=== PATIENT | male | born 1935 | race Caucasian/White ===

== ENCOUNTER 2020-10-17 12:37 | Inpatient (IN) | payer OTHER ==
[2020-10-17] MEDS ORDERED: LACTATED RINGERS SOLUTION 1000 ML INFUS.BAG IV ONE (13:17)
[2020-10-17] MEDS ORDERED: ACETAMINOPHEN 325 MG TABLET (FP) PO ONE (14:15)
[2020-10-17 14:25] LABS: BASO % 0.7 % (0-2.0); EOS % 0.1 % (0-4.5); HEMOGLOBIN 13.3 GM/dL (11.7-16.9); LYMPH % 12.5 % (8-40); MCH 32.2 pg (25.7-33.7); MEAN PLT VOLUME 9.6 fl (7.5-11.1); MONO % 13.1 % (3.8-10.2); NEUT % 73.6 % (42.8-82.8); PLATELET COUNT 82 K/MM3 (134-434); RBC 4.13 M/mm3 (4.00-5.60); RDW 14.7 % (11.9-15.9); WHITE BLOOD COUNT 4.3 K/mm3 (4.0-10.0)
[2020-10-17] MEDS ORDERED: ACETAMINOPHEN 325 MG TABLET (FP) ONE (14:39)
[2020-10-17 14:43] LABS: POTASSIUM 4.5 mmol/L (3.5-5.1)
[2020-10-17 14:46] LABS: BLOOD UREA NITROGEN 16.8 mg/dL (7-18)
[2020-10-17 14:49] LABS: BILIRUBIN,DIRECT 0.3 mg/dL (0.0-0.2); CREATININE 0.9 mg/dL (0.55-1.3)
[2020-10-17 14:51] LABS: BILIRUBIN,TOTAL 0.7 mg/dL (0.2-1); TOT PROT 6.3 g/dl (6.4-8.2)
[2020-10-17 14:54] LABS: INR 1.15 (0.83-1.09); PROTHROMBIN TIME (PATIENT) 13.8 SEC (9.7-13.0)
[2020-10-17 14:57] LABS: ACTIVATED PTT 32.9 SECONDS (25.2-36.5)
[2020-10-17] MEDS ORDERED: ACETAMINOPHEN 325 MG TABLET (FP) PO PRN (15:33)
[2020-10-17] MEDS ORDERED: AZITHROMYCIN 200 MG/5 ML BOTTLE ONE (16:21)
[2020-10-17] MEDS ORDERED: CEFTRIAXONE 1 GM/50 ML BAG ONE ×3 (16:21→17:34)
[2020-10-17] MEDS ORDERED: AZITHROMYCIN IVPB 500 MG/250 ML BAG IVPB ONE ×2 (16:22→17:36)
[2020-10-17] MEDS: CEFTRIAXONE 1 GM in DEXTROSE 5%-WATER - 50 ML IVPB SCH (17:35)
[2020-10-17] MEDS: AZITHROMYCIN IVPB 500 MG/250 ML BAG IVPB SCH (17:35)
[2020-10-17] MEDS ORDERED: DEXAMETHASONE SOD PHOSPHATE 10 MG/1 ML VIAL IVPUSH ONE (18:17)
[2020-10-17] MEDS ORDERED: DEXAMETHASONE SOD PHOSPHATE 10 MG/1 ML VIAL ONE (19:00)
[2020-10-17] MEDS: ATORVASTATIN CA 20 MG TABLET (FP) PO SCH (22:08)
[2020-10-18 01:42] VITALS: BMI 29.0
[2020-10-18 09:02] LABS: BASO % 0.2 % (0-2.0); HEMATOCRIT 39.2 % (35.4-49); HEMOGLOBIN 14.1 GM/dL (11.7-16.9); LYMPH % 13.2 % (8-40); MCH 32.3 pg (25.7-33.7); MCHC 35.9 g/dl (32.0-35.9); MEAN CELL VOLUME 90.2 fl (80-96); MEAN PLT VOLUME 9.3 fl (7.5-11.1); MONO % 8.5 % (3.8-10.2); NEUT % 78.1 % (42.8-82.8); RBC 4.35 M/mm3 (4.00-5.60); RDW 14.5 % (11.9-15.9)
[2020-10-18 09:25] LABS: POTASSIUM 4.1 mmol/L (3.5-5.1)
[2020-10-18 09:36] LABS: BLOOD UREA NITROGEN 16.7 mg/dL (7-18)
[2020-10-18 09:37] LABS: BILIRUBIN,TOTAL 0.5 mg/dL (0.2-1); TOT PROT 6.4 g/dl (6.4-8.2)
[2020-10-18 09:38] LABS: MAGNESIUM 2.5 mg/dL (1.8-2.4)
[2020-10-18 09:39] LABS: CREATININE 0.7 mg/dL (0.55-1.3); PHOSPHOROUS 3.8 mg/dL (2.5-4.9)
[2020-10-18] MEDS ORDERED: ASPIRIN COATED 81 MG TABLET.EC PO SCH (10:00)
[2020-10-18] MEDS ORDERED: DEXAMETHASONE SOD PHOSPHATE 10 MG/1 ML VIAL IVPUSH SCH (10:00)
[2020-10-18 10:38] LABS: PLATELET COUNT 87 K/MM3 (134-434)
[2020-10-18] MEDS: CEFTRIAXONE 1 GM in DEXTROSE 5%-WATER - 50 ML IVPB SCH (11:25)
[2020-10-18] MEDS: ENOXAPARIN NA (PORCINE) 40 MG/0.4 ML DISP.SYRIN SQ SCH (11:33)
[2020-10-18] MEDS: ATENOLOL 25 MG TABLET (FP) PO SCH (11:33)
[2020-10-18] MEDS: PANTOPRAZOLE 20 MG TABLET PO SCH (11:33)
[2020-10-18] MEDS: amLODIPine BESYLATE 10 MG TABLET (FP) PO SCH (11:33)
[2020-10-18] MEDS: ENALAPRIL MALEATE 10 MG TABLET PO SCH (11:34)
[2020-10-18] MEDS ORDERED: ALBUTEROL SO4 HFA INHALER IH PRN (12:23)
[2020-10-18] MEDS: AZITHROMYCIN IVPB 500 MG/250 ML BAG IVPB SCH (12:24)
[2020-10-18 13:05] LABS: EPI CELLS 12 /uL (0-25.1); HYALINE CASTS 2 /uL (0-3.1); PH,URINE 5.5 (5.0-8.0); URINE APPEARANCE CLEAR; URINE BACTERIA 110 /uL (0-1359); URINE BILIRUBIN NEGATIVE (NEGATIVE); URINE COLOR DK YELLOW; URINE GLUCOSE (UA) NEGATIVE (NEGATIVE); URINE KETONE NEGATIVE (NEGATIVE); URINE LEUK ESTERASE NEGATIVE (NEGATIVE); URINE NITRITE NEGATIVE (NEGATIVE); URINE PROTEIN 1+ (NEGATIVE); URINE RBC 11 /uL (0-23.9); URINE WBC 15 /uL (0-25.8)
[2020-10-18] MEDS ORDERED: REMDESIVIR 200 MG in SODIUM CHLORIDE 210 ML IVPB ONE (15:11)
[2020-10-18] MEDS: ATORVASTATIN CA 20 MG TABLET (FP) PO SCH (21:37)
[2020-10-19 09:04] LABS: BASO % 0.2 % (0-2.0); HEMATOCRIT 42.2 % (35.4-49); HEMOGLOBIN 14.9 GM/dL (11.7-16.9); LYMPH % 7.5 % (8-40); MCH 32.3 pg (25.7-33.7); MCHC 35.5 g/dl (32.0-35.9); MEAN CELL VOLUME 91.1 fl (80-96); MEAN PLT VOLUME 8.5 fl (7.5-11.1); MONO % 5.8 % (3.8-10.2); NEUT % 86.5 % (42.8-82.8); PLATELET COUNT 115 K/MM3 (134-434); RBC 4.63 M/mm3 (4.00-5.60); RDW 14.3 % (11.9-15.9); WHITE BLOOD COUNT 7.5 K/mm3 (4.0-10.0)
[2020-10-19 09:15] LABS: POTASSIUM 3.9 mmol/L (3.5-5.1)
[2020-10-19 09:25] LABS: ALBUMIN 3.1 g/dl (3.4-5.0); CALCIUM 8.3 mg/dL (8.5-10.1)
[2020-10-19 09:26] LABS: BLOOD UREA NITROGEN 17.3 mg/dL (7-18); MAGNESIUM 2.7 mg/dL (1.8-2.4)
[2020-10-19 09:29] LABS: CREATININE 0.9 mg/dL (0.55-1.3); PHOSPHOROUS 3.6 mg/dL (2.5-4.9)
[2020-10-19 09:30] LABS: BILIRUBIN,TOTAL 0.8 mg/dL (0.2-1); TOT PROT 6.8 g/dl (6.4-8.2)
[2020-10-19] MEDS: ATENOLOL 25 MG TABLET (FP) PO SCH (09:59)
[2020-10-19] MEDS: ENALAPRIL MALEATE 10 MG TABLET PO SCH (09:59)
[2020-10-19] MEDS: PANTOPRAZOLE 20 MG TABLET PO SCH (10:00)
[2020-10-19] MEDS: amLODIPine BESYLATE 10 MG TABLET (FP) PO SCH (10:00)
[2020-10-19] MEDS: ENOXAPARIN NA (PORCINE) 40 MG/0.4 ML DISP.SYRIN SQ SCH (10:01)
[2020-10-19] MEDS: DEXAMETHASONE SOD PHOSPHATE 4 MG/1 ML VIAL IVPUSH SCH (10:01)
[2020-10-19] MEDS ORDERED: ATENOLOL 25 MG TABLET (FP) PO PRN (13:26)
[2020-10-19] MEDS: REMDESIVIR 100 MG in SODIUM CHLORIDE 230 ML IVPB SCH (16:16)
[2020-10-19] MEDS: ATORVASTATIN CA 20 MG TABLET (FP) PO SCH (21:00)
[2020-10-20] MEDS: PANTOPRAZOLE 20 MG TABLET PO SCH (09:46)
[2020-10-20] MEDS: ENALAPRIL MALEATE 10 MG TABLET PO SCH (09:46)
[2020-10-20] MEDS: amLODIPine BESYLATE 10 MG TABLET (FP) PO SCH (09:46)
[2020-10-20] MEDS: DEXAMETHASONE SOD PHOSPHATE 4 MG/1 ML VIAL IVPUSH SCH (09:47)
[2020-10-20] MEDS: ENOXAPARIN NA (PORCINE) 40 MG/0.4 ML DISP.SYRIN SQ SCH (09:48)
[2020-10-20] MEDS: REMDESIVIR 100 MG in SODIUM CHLORIDE 230 ML IVPB SCH (09:50)
[2020-10-20 11:37] LABS: BASO % 0.1 % (0-2.0); HEMATOCRIT 38.5 % (35.4-49); HEMOGLOBIN 13.3 GM/dL (11.7-16.9); MCH 31.3 pg (25.7-33.7); MCHC 34.5 g/dl (32.0-35.9); MEAN CELL VOLUME 90.9 fl (80-96); MEAN PLT VOLUME 8.8 fl (7.5-11.1); MONO % 8.3 % (3.8-10.2); NEUT % 86.6 % (42.8-82.8); PLATELET COUNT 130 K/MM3 (134-434); RBC 4.23 M/mm3 (4.00-5.60); RDW 14.2 % (11.9-15.9); WHITE BLOOD COUNT 7.6 K/mm3 (4.0-10.0)
[2020-10-20 12:02] LABS: CALCIUM 8.1 mg/dL (8.5-10.1)
[2020-10-20 12:03] LABS: ALBUMIN 2.7 g/dl (3.4-5.0); BLOOD UREA NITROGEN 16.8 mg/dL (7-18); MAGNESIUM 2.5 mg/dL (1.8-2.4)
[2020-10-20 12:06] LABS: CREATININE 0.7 mg/dL (0.55-1.3); PHOSPHOROUS 2.8 mg/dL (2.5-4.9)
[2020-10-20 12:07] LABS: BILIRUBIN,TOTAL 0.7 mg/dL (0.2-1); TOT PROT 5.8 g/dl (6.4-8.2)
[2020-10-20 12:53] LABS: PLATELET ESTIMATE DECREASED
[2020-10-20] MEDS: ATORVASTATIN CA 20 MG TABLET (FP) PO SCH (20:59)
[2020-10-21 08:22] LABS: POTASSIUM 4.1 mmol/L (3.5-5.1)
[2020-10-21 08:31] LABS: BLOOD UREA NITROGEN 18.4 mg/dL (7-18); CALCIUM 8.2 mg/dL (8.5-10.1)
[2020-10-21 08:32] LABS: MAGNESIUM 2.5 mg/dL (1.8-2.4)
[2020-10-21 08:34] LABS: BILIRUBIN,TOTAL 0.8 mg/dL (0.2-1); TOT PROT 6.2 g/dl (6.4-8.2)
[2020-10-21 08:35] LABS: CREATININE 0.8 mg/dL (0.55-1.3)
[2020-10-21 08:36] LABS: PHOSPHOROUS 3.4 mg/dL (2.5-4.9)
[2020-10-21 09:06] LABS: BASO % 0.2 % (0-2.0); EOS % 0.1 % (0-4.5); HEMATOCRIT 40.8 % (35.4-49); HEMOGLOBIN 14.4 GM/dL (11.7-16.9); LYMPH % 8.9 % (8-40); MCH 31.9 pg (25.7-33.7); MCHC 35.3 g/dl (32.0-35.9); MEAN CELL VOLUME 90.4 fl (80-96); MEAN PLT VOLUME 8.4 fl (7.5-11.1); MONO % 6.8 % (3.8-10.2); RBC 4.51 M/mm3 (4.00-5.60); RDW 14.4 % (11.9-15.9); WHITE BLOOD COUNT 7.3 K/mm3 (4.0-10.0)
[2020-10-21 10:30] LABS: PLATELET COUNT 137 K/MM3 (134-434)
[2020-10-21 10:36] LABS: ANISOCYTOSIS 1+; MACROCYTOSIS 1+
[2020-10-21 10:58] LABS: PLATELET ESTIMATE DECREASED
[2020-10-21] MEDS: DEXAMETHASONE SOD PHOSPHATE 4 MG/1 ML VIAL IVPUSH SCH (11:43)
[2020-10-21] MEDS: ENALAPRIL MALEATE 10 MG TABLET PO SCH (11:43)
[2020-10-21] MEDS: amLODIPine BESYLATE 10 MG TABLET (FP) PO SCH (11:43)
[2020-10-21] MEDS: PANTOPRAZOLE 20 MG TABLET PO SCH (11:44)
[2020-10-21] MEDS: ENOXAPARIN NA (PORCINE) 40 MG/0.4 ML DISP.SYRIN SQ SCH (11:44)
[2020-10-21] MEDS: REMDESIVIR 100 MG in SODIUM CHLORIDE 230 ML IVPB SCH (12:12)
[2020-10-21] MEDS: ATORVASTATIN CA 20 MG TABLET (FP) PO SCH (21:04)
[2020-10-22 08:19] LABS: HEMATOCRIT 41.2 % (35.4-49); HEMOGLOBIN 14.4 GM/dL (11.7-16.9); MCH 31.7 pg (25.7-33.7); MCHC 34.9 g/dl (32.0-35.9); MEAN CELL VOLUME 90.8 fl (80-96); MEAN PLT VOLUME 8.3 fl (7.5-11.1); PLATELET COUNT 176 K/MM3 (134-434); RBC 4.53 M/mm3 (4.00-5.60); RDW 14.4 % (11.9-15.9); WHITE BLOOD COUNT 7.6 K/mm3 (4.0-10.0)
[2020-10-22 08:38] LABS: POTASSIUM 3.7 mmol/L (3.5-5.1)
[2020-10-22 08:43] LABS: CALCIUM 8.3 mg/dL (8.5-10.1)
[2020-10-22 08:44] LABS: BLOOD UREA NITROGEN 16.8 mg/dL (7-18)
[2020-10-22 08:47] LABS: CREATININE 0.8 mg/dL (0.55-1.3)
[2020-10-22 08:48] LABS: BILIRUBIN,TOTAL 0.8 mg/dL (0.2-1); TOT PROT 6.3 g/dl (6.4-8.2)
[2020-10-22] MEDS: DEXAMETHASONE SOD PHOSPHATE 4 MG/1 ML VIAL IVPUSH SCH (10:21)
[2020-10-22] MEDS: amLODIPine BESYLATE 10 MG TABLET (FP) PO SCH (10:22)
[2020-10-22] MEDS: PANTOPRAZOLE 20 MG TABLET PO SCH (10:22)
[2020-10-22] MEDS: REMDESIVIR 100 MG in SODIUM CHLORIDE 230 ML IVPB SCH (10:22)
[2020-10-22] MEDS: ENOXAPARIN NA (PORCINE) 40 MG/0.4 ML DISP.SYRIN SQ SCH (10:22)
[2020-10-22] MEDS: ENALAPRIL MALEATE 10 MG TABLET PO SCH (10:22)
[2020-10-22 14:35] VITALS: TEMP 97.9
[2020-10-22 16:34] VITALS: BP 121/61; PULSE 68
== END 2020-10-22 18:37 | disposition home or self-care (01) | DRG 177 ==
LOC: JER 12:37 → JERBED 14:52 → J5WEST-2 10-18 00:07
PROVIDERS: ADMIT Internal Medicine; ATTEND Internal Medicine
PROC: XW033E5 Introduction of Remdesivir Anti-infective into Peripheral Vein, Percutaneous Approach, New Technology Group 5 (ICD-10-PCS; principal; 2020-10-18)
DX: U07.1 COVID-19 (principal); J12.82 Pneumonia due to coronavirus disease 2019; G93.41 Metabolic encephalopathy; J96.91 Respiratory failure, unspecified with hypoxia; R41.82 Altered mental status, unspecified; E86.0 Dehydration; I10 Essential (primary) hypertension; E78.00 Pure hypercholesterolemia, unspecified; R79.89 Other specified abnormal findings of blood chemistry; D69.6 Thrombocytopenia, unspecified; J06.9 Acute upper respiratory infection, unspecified; K22.70 Barrett's esophagus without dysplasia; D72.819 Decreased white blood cell count, unspecified; Z86.73 Personal history of transient ischemic attack (TIA), and cerebral infarction without residual deficits; Z98.890 Other specified postprocedural states
CPT/HCPCS: 36415; 70450-TC; 71045-TC-FY; 80053; 81003; 82248; 82550; 82553; 82728; 83605; 83615; 83735; 84100; 84484; 85025; 85027; 85379; 85610; 85730; 86140; 86769; 87040; 87086; 87804; 87899; 93005; 93010; 93970-TC; 97116-GP; 97162-GP; 99285-25; C9399; C9803; J1100; U0003